=== PATIENT | female | born 1985 | race Caucasian/White ===

== ENCOUNTER 2020-11-17 14:35 | Emergency (ER) | payer SELFPAY ==
[2020-11-17 14:44] VITALS: TEMP 97.8; BMI 23.0
[2020-11-17 15:26] LABS: EPI CELLS 6 /uL (0-25.1); HYALINE CASTS 0 /uL (0-3.1); URINE APPEARANCE CLEAR; URINE BACTERIA 66 /uL (0-1359); URINE BILIRUBIN NEGATIVE (NEGATIVE); URINE COLOR YELLOW; URINE GLUCOSE (UA) NEGATIVE (NEGATIVE); URINE KETONE NEGATIVE (NEGATIVE); URINE LEUK ESTERASE TRACE (NEGATIVE); URINE NITRITE NEGATIVE (NEGATIVE); URINE PROTEIN NEGATIVE (NEGATIVE); URINE RBC 26 /uL (0-23.9); URINE UROBILINOGEN 0.2 mg/dL (0.2-1.0); URINE WBC 4 /uL (0-25.8)
[2020-11-17 15:27] LABS: HCG,QUALITATIVE URINE Negative
[2020-11-17 18:39] VITALS: BP 101/64; PULSE 56
== END 2020-11-17 18:57 | disposition home or self-care (01) ==
LOC: JERFT 14:35
DX: R10.9 Unspecified abdominal pain (principal)
CPT/HCPCS: 74176-TC; 81003; 84703; 99284-25

== ENCOUNTER 2024-07-29 12:01 | Emergency (ER) | payer OTHER ==
[2024-07-29 12:13] VITALS: BP 95/54; PULSE 70; RESP 18; TEMP 98.8; BMI 29.5
[2024-07-29] MEDS ORDERED: ERYTHROMYCIN 0.5% OPHTHALMIC OINTMENT 3.5 GM TUBE ONE (12:52)
[2024-07-29] MEDS ORDERED: AMOX TR/POT CLAV 875MG/125MG TABLETS (FP) ONE (12:52)
[2024-07-29] MEDS: AMOX TR/POT CLAV 875MG/125MG TABLETS (FP) PO ONE (12:53)
[2024-07-29] MEDS: ERYTHROMYCIN 0.5% OPHTHALMIC OINTMENT 3.5 GM TUBE OD STA (12:53)
[2024-07-29] MEDS ORDERED: IBUPROFEN 600 MG TABLET (FP) PO ONE (12:56)
[2024-07-29] MEDS: IBUPROFEN 600 MG TABLET (FP) PO ONE (12:59)
[2024-07-29] MEDS ORDERED: IBUPROFEN 400 MG TABLET (FP) PO ONE (13:24)
[2024-07-29] MEDS ORDERED: PENICILLIN G BENZATHINE 1,200,000 UNIT/2 ML PFS IM ONE (13:25)
[2024-07-29] MEDS ORDERED: ACETAMINOPHEN 500 MG TABLET (FP) ONE (13:25)
[2024-07-29] MEDS ORDERED: DEXAMETHASONE SOD PHOSPHATE 10 MG/1 ML VIAL ONE (13:25)
== END 2024-07-29 13:10 | disposition home or self-care (01) ==
LOC: JERFT 12:01 → JER 12:01 → JERFT 13:10
DX: H00.022 Hordeolum internum right lower eyelid (principal); H00.031 Abscess of right upper eyelid
CPT/HCPCS: 99283-25